=== PATIENT | male | born 1965 | race Caucasian/White ===

== ENCOUNTER 2018-06-25 10:35 | Day surgery (SDC) | payer BC ==
--- NOTE | 2018-06-25 10:09 | EKG ---
Test Date: 2018-06-25 Test Time: 09:44:10 Electrical Test Technician: JOEL MEASUREMENT RESULTS: Intervals: Rate: 75 KS: 134 QRSD: 94 QT: 350 QTc: 390 [place]: P: 61 KS: 134 QRS: -13 T: 61 INTERPRETIVE STATEMENTS: Normal sinus rhythm Normal ECG No previous ECG available for comparison Electronically Signed On 06-25-18 10:08:59 [employer] by Tyrone Rodriguez
--- NOTE | 2018-06-25 10:09 | RAD REPORT ---
EXAM DESCRIPTION: RAD - Chest Pa And Lat (2 Views) - 06/25/2018 10:02 am CLINICAL HISTORY: preop Chest pain. COMPARISON: No comparisons FINDINGS: Emphysematous changes are present throughout the lungs. There is a small vague area of nod ularity seen in the right lung laterally. No comparative studies are available to document stability. The heart is normal in size. No displaced fractures. IMPRESSION: COPD with small nodule present in the right lower lung laterally. CT chest followup assessment is recommended.
[2018-06-25 10:33] LABS: Urine Appearance CLEAR; Urine Bilirubin NEGATIVE (NEG); Urine Blood NEGATIVE (NEG); Urine Color YELLOW; Urine Glucose NEGATIVE (NEG); Urine Protein NEGATIVE (NEG)
[2018-06-25 10:37] LABS: Absolute Lymphocytes (CBC) 1.8 K/uL (0.7-4.9); Absolute Monocytes 0.9 K/uL (0.1-1.3); Absolute Neutrophil 5.7 K/uL (1.8-8.0); Basophils % 0.6 % (0-1.3); Eosinophils % 1.6 % (0-4.4); Lymphocytes % 21.3 % (15.3-44.8); MPV 8.7 fL (7.6-11.3); RBC Red Blood Cell Count 5.32 M/uL (4.33-5.43)
[2018-06-25 10:43] LABS: Protime INR 1.01; Urine Microscopic Reflex NO UMIC
[2018-06-25 10:50] LABS: Potassium 4.2 mmol/L (3.5-5.1)
[2018-06-25] MEDS ORDERED: GENTAMICIN 100 MG/100 ML BAG 100 MG/100 ML BAG IV ONE (10:51)
[2018-06-25] MEDS ORDERED: Ringers Lactate 1,000 ML IV ONE (10:51)
[2018-06-25] MEDS ORDERED: MIDAZOLAM HCL 2 MG/2 ML INJ ONE (13:03)
[2018-06-25] MEDS ORDERED: PROPOFOL 200 MG/20 ML VIAL IV ONE (13:03)
[2018-06-25] MEDS ORDERED: LIDOCAINE 2% MPF 5 ML VIAL ONE (13:03)
[2018-06-25] MEDS ORDERED: FENTANYL CITR 100 MCG/2 ML ONE (13:03)
[2018-06-25] MEDS ORDERED: OXYBUTYNIN CHLORIDE 5 MG TAB ONE (15:10)
== END 2018-06-25 15:25 | disposition home or self-care (01) ==
LOC: OR 10:35
PROVIDERS: ATTEND Urology
PROC: 0T7D8DZ Dilation of Urethra with Intraluminal Device, Via Natural or Artificial Opening Endoscopic (ICD-10-PCS; principal; 2018-06-25 13:00)
DX: N40.1 Benign prostatic hyperplasia with lower urinary tract symptoms (principal); R39.12 Poor urinary stream; R33.8 Other retention of urine; R35.0 Frequency of micturition; R39.15 Urgency of urination; R39.198 Other difficulties with micturition; N52.9 Male erectile dysfunction, unspecified; R53.83 Other fatigue; F17.210 Nicotine dependence, cigarettes, uncomplicated
CPT/HCPCS: 36415; 71046; 80048; 81003; 85025; 85610; 85730; 87086; 87088; 93005; J1580; J2250; J2704; J3010